=== PATIENT | male | born 1980 | race Caucasian/White ===

== ENCOUNTER 2017-06-21 11:22 | Emergency (ER) | payer OTHER ==
[2017-06-21] MEDS ORDERED: TORAdol 30 mg Injection IM ONE (11:51)
--- NOTE | 2017-06-21 11:51 | ERPHSYRPT ---
- History of Present Illness Time Seen by Provider: 06/21/17 11:46 Source: patient Exam Limitations: no limitations Patient Subjective Stated Complaint: pt here for pain reddness and swelling to left finger since last night getting worse Triage Nursing Assessment: pt has swelling and reddness to left finger, unsure of injuy, alert, walked in resp easy Physician History: The patient is a right-handed male who comes in complaining of a tender, swollen , red knuckle on his left hand that began last night. The pain kept him awake last night. The condition is worsening. He has never had anything like this before. He denies trauma. He does eat a lot of red meat. His past medical history is unremarkable. Occurred: yesterday Method of Injury: other (none) Quality: sharpness Severity of Pain-Max: severe Severity of Pain-Current: severe Extremities Pain Location: thumb: left Modifying Factors: Improves With: nothing Associated Symptoms: none Hx Tetanus, Diphtheria Vaccination/Date Given: No Hx Influenza Vaccination/Date Given: No Immunizations Up to Date: Yes - Review of Systems Constitutional: No Fever, No Chills Eyes: No Symptoms Ears, Nose, & Throat: No Symptoms Respiratory: No Cough, No Dyspnea Cardiac: No Chest Pain, No Edema, No Syncope Abdominal/Gastrointestinal: No Abdominal Pain, No Nausea, No Vomiting, No Diarrhea Genitourinary Symptoms: No Dysuria Musculoskeletal: Joint Redness, Joint Pain, Joint Swelling Skin: No Rash Neurological: No Dizziness, No Focal Weakness, No Sensory Changes Psychological: No Symptoms Endocrine: No Symptoms Hematologic/Lymphatic: No Symptoms Immunological/Allergic: No Symptoms All Other Systems: Reviewed and Negative - Past Medical History Pertinent Past Medical History: No - Past Surgical History Past Surgical History: Yes Musculoskeletal: Orthopedic Surgery Other Surgical History: sholuder - Social History Smoking Status: Never smoker Exposure to second hand smoke: No Drug Use: none Patient Lives Alone: No - Nursing Vital Signs Nursing Vital Signs: Initial Vital Signs Temperature 99.5 F 06/21/17 11:23 Pulse Rate 97 H 06/21/17 11:23 Respiratory Rate 16 06/21/17 11:23 Blood Pressure 158/78 06/21/17 11:23 O2 Sat by Pulse Oximetry 97 06/21/17 11:23 Pain Scale Pain Intensity 6 - Physical Exam General Appearance: mild distress Eyes, Ears, Nose, Throat Exam: moist mucous membranes Neck Exam: non-tender, supple Cardiovascular/Respiratory Exam: chest non-tender, normal breath sounds, regular rate/rhythm, no respiratory distress Abdominal Exam: non-tender, No guarding Back Exam: normal inspection, No vertebral tenderness Shoulder Exam: normal inspection Elbow/Forearm Exam: normal inspection Wrist Exam: normal inspection Hand Exam: soft tissue tenderness (Examination of the left hand reveals swelling , tenderness, and redness over the MCP joint of the index finger. The area has exquisite tenderness to palpation. The area is warm.), stiffness, swelling Neuro/Tendon Exam: normal sensation, normal motor functions Mental Status Exam: alert, oriented x 3, cooperative Skin Exam: warm SpO2 Interpretation: normal SpO2: 97 Oxygen Delivery: Room Air - Progress Progress: unchanged Counseled pt/family regarding: diagnosis, need for follow-up - Departure Time of Disposition: 11:56 Departure Disposition: Home Clinical Impression: Acute gout Condition: Stable Critical Care Time: No Additional Instructions: You have acute gouty arthritis at the base of the index finger on your left hand. You were given a Toradol 60 mg IM injection in the ER. Continue with naproxen 500 mg every 12 hours for the next 5 days. Stay well hydrated. Reduce your intake of red meat. Follow-up next week. Prescriptions: Naproxen 500 mg PO BID PRN #30 tablet.
[2017-06-21] MEDS ORDERED: TORAdol 30 mg Injection ONE (12:01)
[2017-06-21 12:26] VITALS: BP 118/70; PULSE 76; O2SAT 100
== END 2017-06-21 12:26 | disposition home or self-care (01) ==
LOC: ED 11:22
DX: M10.9 Gout, unspecified (principal); M79.642 Pain in left hand
CPT/HCPCS: 96372; 99281; 99284; J1885